=== PATIENT | male | born 1960 | race Caucasian/White ===

== ENCOUNTER 2023-11-13 18:49 | Inpatient (IN) | payer BC ==
[~2023-11-13] VITALS: Ht 175.3 cm; Wt 96.3 kg
[~2023-11-13 18:49] MED LIST: ATO40T PO; CIPR0.3S RIGHTEYE; CYCL-837 PO; DILT120C33 PO; ENAL1TAB46 PO; GABA-339 PO; NOR10T PO; OMEP20CA74 PO; RIVA20TA PO
[2023-11-14] VITALS (22 sets, daily range): BP systolic 113–173; BP diastolic 59–97; PULSE 56–117; RESP 12–22; TEMP 97.5–98.8; O2SAT 95–100
[2023-11-14] MEDS ORDERED: ATOR40TA52 PO (03:03)
[2023-11-14] MEDS ORDERED: ENAL1TAB46 PO (03:03)
[2023-11-14] MEDS ORDERED: METO-289 PO (03:03)
[2023-11-14] MEDS ORDERED: AMIO200T33 PO (03:03)
[2023-11-14] MEDS ORDERED: DULO1CAP6 PO (03:03)
[2023-11-14] MEDS ORDERED: RIVA20TA PO (03:03)
[2023-11-14] MEDS ORDERED: SODIUM CHLORIDE 0.9% 500 ML IV SCH (03:15)
[2023-11-14] MEDS ORDERED: ACETAMINOPHEN 325 MG TAB PO PRN (03:15)
[2023-11-14] MEDS ORDERED: DOCUSATE SOD 100 MG CAP PO PRN (03:15)
[2023-11-14] MEDS ORDERED: MORPHINE SULFATE INJ 2 MG/ml SYRG IV PRN ×2 (03:15)
[2023-11-14] MEDS ORDERED: NITROGLYCERIN 0.4 MG SL TAB SL PRN (03:15)
[2023-11-14] MEDS ORDERED: HYDROcodone-ACET 5/325MG TAB PO PRN (03:15)
[2023-11-14] MEDS ORDERED: ONDANSETRON HCL 4 MG/2 ML VIAL IV PRN (03:15)
[2023-11-14] MEDS ORDERED: hydrALAZINE HCL 20 MG/ML VL IV PRN (04:45)
[2023-11-14] MEDS: ALBUTEROL SULF 2.5 MG/0.5ML(0.5%) NEB SOLN NEB SCH ×5 (06:36→22:47)
[2023-11-14] MEDS: IPRATROPIUM BROM 0.5 MG/2.5ML INH SOL NEB SCH ×5 (06:36→22:47)
[2023-11-14 06:40] LABS: Lactic Acid w/Reflex 2.8 mmol/L (0.4-2.0)
[2023-11-14 07:11] LABS: Basophils # (auto) 0 10 ^3/uL (0-0.2); Basophils % (auto) 0.1 % (0.0-2.0); Eosinophils # (auto) 0 10 ^3/uL (0-0.8); Hematocrit 41.4 % (41.0-53.0); Hemoglobin 13.7 g/dL (13.5-17.5); Lymphocytes # (auto) 0.6 10 ^3/uL (0.4-5.4); Lymphocytes % (auto) 8.5 % (10.0-50.0); Mean Corpuscular Hemoglobin 33.5 pg (28.0-32.0); Mean Corpuscular Volume 101.4 fL (80.0-100.0); Monocytes # (auto) 0.2 10 ^3/uL (0-1.3); Monocytes % (auto) 2.3 % (0.0-12.0); Neutrophils % (auto) 89.1 % (37.0-80.0); Nucleated Red Blood Cells % 0.1 %; Red Blood Cells 4.08 10^6/uL (4.5-5.90); Red Cell Distribution Width 16.4 % (11.8-14.3); White Blood Cell 6.8 10^3/uL (4.4-10.8)
[2023-11-14 07:22] LABS: Alanine Aminotransferase 16 U/L (7-40); Albumin 4.1 g/dL (3.2-4.8); Alkaline Phosphatase 77 U/L (46-116); Anion Gap 11 (5-15); Aspartate Aminotransferase 24 U/L (13-40); BUN/Creatinine Ratio 15.4 (10.0-20.0); Bilirubin, Total 0.9 mg/dL (0.2-1.0); Blood Urea Nitrogen 21 mg/dL (9-23); Calcium 8.2 mg/dL (8.7-10.4); Carbon Dioxide 21 mmol/L (20-30); Chloride 108 mmol/L (98-107); Glucose 138 mg/dL (74-106); Sodium 140 mmol/L (136-145); Total Protein 6.7 g/dL (5.7-8.2)
[2023-11-14] MEDS: cefTRIAXone 1GM/50ML D5W 50 ML IV SCH (08:46)
[2023-11-14] MEDS: METOPROLOL SUCCINATE XL 50 MG TAB PO SCH (09:49)
[2023-11-14] MEDS: ASPirin 81 mg TAB PO SCH (09:50)
[2023-11-14] MEDS: AZITHROMYCIN 500MG/ 250ML 250 ML IV SCH (09:50)
[2023-11-14] MEDS: AMIODARONE HCL 200 MG TAB PO SCH (09:50)
[2023-11-14] MEDS ORDERED: ENOXAPARIN SOD 40 MG/0.4 ML SYRINGE SC SCH (10:00)
[2023-11-14] MEDS: methylPREDNISolone SOD SUCC 40 MG/ML VL IV SCH ×2 (14:45→21:30)
[2023-11-14] MEDS: RIVAROXABAN 20 MG TAB PO SCH (16:42)
[2023-11-14] MEDS ORDERED: ATORVASTATIN 20 MG TAB PO SCH (22:00)
[2023-11-15] VITALS (10 sets, daily range): BP systolic 132–151; BP diastolic 77–116; PULSE 61–122; RESP 18–19; TEMP 97.4–98.3; O2SAT 95–100
[2023-11-15 04:58] LABS: Anion Gap 9 (5-15); Carbon Dioxide 21 mmol/L (20-30); Chloride 107 mmol/L (98-107); Potassium 3.9 mmol/L (3.5-5.1); Sodium 137 mmol/L (136-145)
[2023-11-15 04:59] LABS: Calcium 8.6 mg/dL (8.7-10.4)
[2023-11-15 05:04] LABS: BUN/Creatinine Ratio 14.4 (10.0-20.0); Blood Urea Nitrogen 22 mg/dL (9-23); Glucose 152 mg/dL (74-106)
[2023-11-15] MEDS: methylPREDNISolone SOD SUCC 40 MG/ML VL IV SCH ×2 (05:18→13:10)
[2023-11-15 05:21] LABS: Basophils # (auto) 0 10 ^3/uL (0-0.2); Eosinophils # (auto) 0 10 ^3/uL (0-0.8); Lymphocytes # (auto) 0.6 10 ^3/uL (0.4-5.4); Mean Corpuscular Volume 101.8 fL (80.0-100.0); Monocytes # (auto) 0.2 10 ^3/uL (0-1.3); White Blood Cell 9.8 10^3/uL (4.4-10.8)
[2023-11-15 05:23] LABS: Basophils % (auto) 0.2 % (0.0-2.0); Eosinophils % (auto) 0.1 % (0.0-7.0); Hematocrit 40.9 % (41.0-53.0); Hemoglobin 13.4 g/dL (13.5-17.5); Lymphocytes % (auto) 6.4 % (10.0-50.0); Mean Corpuscular Hemoglobin 33.3 pg (28.0-32.0); Mean Corpuscular Hgb Conc. 32.7 g/dL (32.0-36.0); Monocytes % (auto) 2.1 % (0.0-12.0); Neutrophils # (auto) 8.9 10 ^3/uL (1.6-8.6); Neutrophils % (auto) 91.2 % (37.0-80.0); Nucleated Red Blood Cells % 0.1 %; Red Blood Cells 4.02 10^6/uL (4.5-5.90); Red Cell Distribution Width 16.3 % (11.8-14.3)
[2023-11-15] MEDS: IPRATROPIUM BROM 0.5 MG/2.5ML INH SOL NEB SCH ×3 (06:31→14:48)
[2023-11-15] MEDS: ALBUTEROL SULF 2.5 MG/0.5ML(0.5%) NEB SOLN NEB SCH ×3 (06:31→14:47)
[2023-11-15] MEDS: cefTRIAXone 1GM/50ML D5W 50 ML IV SCH (08:14)
[2023-11-15] MEDS: METOPROLOL SUCCINATE XL 50 MG TAB PO SCH (09:30)
[2023-11-15] MEDS: ASPirin 81 mg TAB PO SCH (09:30)
[2023-11-15] MEDS: AZITHROMYCIN 500MG/ 250ML 250 ML IV SCH (09:31)
[2023-11-15] MEDS: AMIODARONE HCL 200 MG TAB PO SCH (09:31)
[2023-11-15] MEDS ORDERED: REGADENOSON 0.4 MG/5 ML SYRG IV ONE ×2 (10:09→10:15)
[2023-11-15] MEDS: RIVAROXABAN 20 MG TAB PO SCH (17:30)
[2023-11-15] MEDS ORDERED: AUG875T PO (17:59)
[2023-11-15] MEDS ORDERED: METH4PAK PO (17:59)
[2023-11-16] MEDS ORDERED: amLODIPine BESYLATE 5 MG TAB PO SCH (10:00)
[2023-11-22] MEDS ORDERED: METH4PAK PO (12:25)
[2023-11-22] MEDS ORDERED: DOXY-448 PO (12:25)
[2023-11-24] MEDS ORDERED: FURO1TAB31 PO (13:22)
== END 2023-11-15 21:17 | disposition home or self-care (01) | DRG 177 ==
LOC: TELE-WESTW 11-14 01:44
PROVIDERS: ADMIT Hospitalist; ATTEND Hospitalist
DX: J15.69 Pneumonia due to other Gram-negative bacteria (principal); J96.21 Acute and chronic respiratory failure with hypoxia; J44.0 Chronic obstructive pulmonary disease with (acute) lower respiratory infection; E87.20 Acidosis, unspecified; J98.11 Atelectasis; J44.1 Chronic obstructive pulmonary disease with (acute) exacerbation; J90 Pleural effusion, not elsewhere classified; I13.0 Hypertensive heart and chronic kidney disease with heart failure and stage 1 through stage 4 chronic kidney disease, or unspecified chronic kidney disease; I48.21 Permanent atrial fibrillation; E66.9 Obesity, unspecified; E87.6 Hypokalemia; F17.210 Nicotine dependence, cigarettes, uncomplicated; I73.9 Peripheral vascular disease, unspecified; N18.9 Chronic kidney disease, unspecified; I50.9 Heart failure, unspecified; Z68.30 Body mass index [BMI] 30.0-30.9, adult; Z86.73 Personal history of transient ischemic attack (TIA), and cerebral infarction without residual deficits; I25.2 Old myocardial infarction; Z83.3 Family history of diabetes mellitus; J15.9 Unspecified bacterial pneumonia
CPT/HCPCS: 36415; 78452; 80048; 80053; 83605; 84484; 85025; 87040; 93017; 93306; 93925; 94640; 97163; G0378

== ENCOUNTER 2024-03-22 09:23 | Inpatient (IN) | payer BC ==
[2024-03-22] VITALS (7 sets, daily range): BP systolic 109; BP diastolic 55; PULSE 97–109; RESP 15–28; TEMP 98.5; O2SAT 94–100
[~2024-03-22] VITALS: Ht 175.3 cm; Wt 97.0 kg
[~2024-03-22 09:23] MED LIST changes: +AMIO200T33 PO; -ATO40T PO; +ATOR40TA52 PO; -CIPR0.3S RIGHTEYE; +DOXY-448 PO; +DULO1CAP6 PO; -ENAL1TAB46 PO; +FURO1TAB31 PO; +METH4PAK PO; +METO-289 PO
[2024-03-22] MEDS: ALBUTEROL SULF 2.5 MG/0.5ML(0.5%) NEB SOLN NEB ONE ×2 (09:30→09:38)
[2024-03-22] MEDS: MAGNESIUM SULFATE 1GM/100ML 100 ML IV ONE (09:30)
[2024-03-22] MEDS: ALBUTEROL SULF 2.5 MG/0.5ML(0.5%) NEB SOLN ONE (09:37)
[2024-03-22] MEDS: cefTRIAXone 1GM/50ML D5W 50 ML IV ONE (09:47)
[2024-03-22] MEDS: FUROSEMIDE 20 MG/2 ML VIAL IV ONE (09:47)
[2024-03-22] MEDS: methylPREDNISolone SOD SUCC 125 MG/2 ML VL IV ONE (09:47)
[2024-03-22 09:50] LABS: Basophils # (auto) 0 10 ^3/uL (0-0.2); Basophils % (auto) 0.5 % (0.0-2.0); Eosinophils # (auto) 0 10 ^3/uL (0-0.8); Eosinophils % (auto) 0.4 % (0.0-7.0); Hematocrit 41.7 % (41.0-53.0); Hemoglobin 13.4 g/dL (13.5-17.5); Lymphocytes # (auto) 1.4 10 ^3/uL (0.4-5.4); Lymphocytes % (auto) 14.8 % (10.0-50.0); Mean Corpuscular Hemoglobin 33.1 pg (28.0-32.0); Mean Corpuscular Hgb Conc. 32.2 g/dL (32.0-36.0); Mean Corpuscular Volume 102.8 fL (80.0-100.0); Monocytes # (auto) 0.6 10 ^3/uL (0-1.3); Monocytes % (auto) 5.8 % (0.0-12.0); Neutrophils # (auto) 7.5 10 ^3/uL (1.6-8.6); Neutrophils % (auto) 78.5 % (37.0-80.0); Red Blood Cells 4.05 10^6/uL (4.5-5.90); Red Cell Distribution Width 15.4 % (11.8-14.3); White Blood Cell 9.5 10^3/uL (4.4-10.8)
[2024-03-22 09:56] LABS: Chloride 107 mmol/L (98-107); Potassium 2.8 mmol/L (3.5-5.1); Sodium 140 mmol/L (136-145)
[2024-03-22 09:57] LABS: Anion Gap 8 (5-15); Carbon Dioxide 25 mmol/L (20-30)
[2024-03-22 09:58] LABS: Calcium 9.4 mg/dL (8.5-10.1)
[2024-03-22 10:02] LABS: Glucose 126 mg/dL (74-106)
[2024-03-22 10:03] LABS: BUN/Creatinine Ratio 10.2 (10.0-20.0); Blood Urea Nitrogen 11 mg/dL (9-23)
[2024-03-22] MEDS: AZITHROMYCIN 500MG/ 250ML 250 ML IV ONE (11:17)
[2024-03-22] MEDS ORDERED: NITROGLYCERIN 0.4 MG SL TAB SL PRN (13:15)
[2024-03-22] MEDS ORDERED: MORPHINE SULFATE INJ 2 MG/ml SYRG IV PRN (13:15)
[2024-03-22] MEDS ORDERED: CYCLOBENZAPRINE HCL 10 MG TAB PO PRN (13:30)
[2024-03-22] MEDS: ALBUTEROL SULF 2.5 MG/0.5ML(0.5%) NEB SOLN NEB SCH (14:15)
[2024-03-22] MEDS: IPRATROPIUM BROM 0.5 MG/2.5ML INH SOL NEB SCH (14:16)
[2024-03-22] MEDS: methylPREDNISolone SOD SUCC 125 MG/2 ML VL IV SCH (14:38)
[2024-03-22] MEDS: GABAPENTIN 300 MG CAP PO SCH (14:38)
[2024-03-22] MEDS: FUROSEMIDE 40 MG/4 ML VIAL IV SCH (18:00)
[2024-03-22] MEDS: HYDROcodone-ACET 5/325MG TAB PO PRN (19:59)
[2024-03-22] MEDS: ATORVASTATIN 20 MG TAB PO SCH (22:47)
[2024-03-22] MEDS: POTASSIUM CHL 20 Meq TABLET PO ONE (23:49)
[2024-03-23] VITALS (18 sets, daily range): BP systolic 94–121; BP diastolic 64–82; PULSE 70–120; RESP 14–30; TEMP 98–98.3; O2SAT 95–99
[2024-03-23 05:44] LABS: Basophils # (auto) 0.2 10 ^3/uL (0-0.2); Eosinophils # (auto) 0 10 ^3/uL (0-0.8); Hematocrit 39.4 % (41.0-53.0); Hemoglobin 12.9 g/dL (13.5-17.5); Lymphocytes # (auto) 0.7 10 ^3/uL (0.4-5.4); Lymphocytes % (auto) 3.6 % (10.0-50.0); Mean Corpuscular Hemoglobin 33.1 pg (28.0-32.0); Mean Corpuscular Hgb Conc. 32.7 g/dL (32.0-36.0); Mean Corpuscular Volume 101.1 fL (80.0-100.0); Monocytes # (auto) 0.5 10 ^3/uL (0-1.3); Monocytes % (auto) 2.3 % (0.0-12.0); Neutrophils # (auto) 18.6 10 ^3/uL (1.6-8.6); Neutrophils % (auto) 93.1 % (37.0-80.0); Red Cell Distribution Width 15.4 % (11.8-14.3)
[2024-03-23 06:31] LABS: Albumin 3.9 g/dL (3.2-4.8); Alkaline Phosphatase 69 U/L (46-116); Anion Gap 11 (5-15); Aspartate Aminotransferase 13 U/L (13-40); BUN/Creatinine Ratio 16.7 (10.0-20.0); Blood Urea Nitrogen 23 mg/dL (9-23); Calcium 9.2 mg/dL (8.7-10.4); Carbon Dioxide 23 mmol/L (20-30); Chloride 104 mmol/L (98-107); Glucose 156 mg/dL (74-106); Sodium 138 mmol/L (136-145)
[2024-03-23 06:32] LABS: Alanine Aminotransferase < 9 U/L (7-40); Bilirubin, Total 0.9 mg/dL (0.2-1.0); Total Protein 6.9 g/dL (5.7-8.2)
[2024-03-23] MEDS: MORPHINE SULFATE INJ 2 MG/ml SYRG IV PRN (07:28)
[2024-03-23] MEDS: ONDANSETRON HCL 4 MG/2 ML VIAL IV PRN (07:30)
[2024-03-23] MEDS: cefTRIAXone 1GM/50ML D5W 50 ML IV SCH (09:08)
[2024-03-23] MEDS ORDERED: RIVAROXABAN 20 MG TAB PO SCH (10:00)
[2024-03-23] MEDS: DULoxetine HCL 30 MG CAP PO SCH (10:34)
[2024-03-23] MEDS: PANTOPRAZOLE 40 MG TAB PO SCH (10:35)
[2024-03-23] MEDS: AZITHROMYCIN 500MG/ 250ML 250 ML IV SCH (10:35)
[2024-03-23] MEDS: AMIODARONE HCL 200 MG TAB PO SCH (10:35)
[2024-03-23] MEDS: dilTIAZem 120MG ER CAP PO SCH (10:35)
[2024-03-23] MEDS: ENOXAPARIN SOD 40 MG/0.4 ML SYRINGE SC SCH (10:36)
[2024-03-23] MEDS: METOPROLOL SUCCINATE XL 50 MG TAB PO SCH (10:37)
[2024-03-23] MEDS ORDERED: AMLO1TAB22 PO (14:51)
[2024-03-23] MEDS ORDERED: IBUP-1454 PO (14:51)
[2024-03-23] MEDS ORDERED: ASPI81TA28 PO (14:51)
[2024-03-23] MEDS ORDERED: ALBU2TAB11 PO (14:51)
[2024-03-23] MEDS ORDERED: FLUT0.05 NAS (14:51)
[2024-03-23] MEDS: ACETAMINOPHEN 325 MG TAB PO PRN (22:01)
[2024-03-24] VITALS (29 sets, daily range): BP systolic 104–129; BP diastolic 52–98; PULSE 53–123; RESP 12–22; TEMP 79.9–98.1; O2SAT 90–98
[2024-03-24] MEDS: LIDOCAINE 2%HCL (LOCAL ANESTH.) INJ 20ML MDV ONE (12:11)
[2024-03-24] MEDS: IODIXANOL 320MG/ML 100ML BTL IV ONE (12:11)
[2024-03-24] MEDS: VERAPAMIL 2.5MG/ML INJ 2ML VIAL IV ONE (12:29)
[2024-03-24] MEDS: fentaNYL CITRATE 100 MCG/2 ML VL ONE (12:29)
[2024-03-24] MEDS: MIDAZOLAM HCL 2MG/2ML 2ml VIAL (1mg/ml) ONE (12:29)
[2024-03-24] MEDS: ANGIOMAX 250 MG VIAL IV ONE (12:29)
[2024-03-24] MEDS: SODIUM CHL 0.9% 0 ML ONE (12:30)
[2024-03-24] MEDS: HEPARIN SODIUM (PORCINE) 5000 UNITS/ML 1ML VIAL ONE (13:14)
[2024-03-24] MEDS ORDERED: ALBU108A5 INH (14:29)
[2024-03-24] MEDS ORDERED: FLUT1AER7 INH (14:31)
[2024-03-24] MEDS: metOLazone 5 MG TAB PO ONE (15:13)
[2024-03-24] MEDS: CLOPIDOGREL BISULFATE 75 MG TAB PO ONE (15:14)
[2024-03-24] MEDS: POTASSIUM CHL 20 Meq TABLET PO ONE (21:48)
[2024-03-24] MEDS: POTASSIUM CHL 20MEQ/100ML 100 ML IV ONE (21:50)
[2024-03-24] MEDS ORDERED: FUROSEMIDE 40 MG/4 ML VIAL IV ONE (23:00)
[2024-03-24] MEDS ORDERED: SODIUM BICARB 8.4% 50Meq/50ml SYR Vial IV ONE (23:44)
[2024-03-25] MEDS ORDERED: CLOPIDOGREL BISULFATE 75 MG TAB PO SCH (10:00)
== END 2024-03-25 07:07 | DRG 291 ==
LOC: ER 09:23 → EDBD 09:23 → TELE 13:19 → TELE-CENTR 03-23 14:27
PROVIDERS: ADMIT Internal Medicine; ATTEND Internal Medicine
PROC: 0BH17EZ Insertion of Endotracheal Airway into Trachea, Via Natural or Artificial Opening (ICD-10-PCS; 2024-03-22)
PROC: 5A12012 Performance of Cardiac Output, Single, Manual (ICD-10-PCS; principal; 2024-03-24)
DX: I11.0 Hypertensive heart disease with heart failure (principal); I50.23 Acute on chronic systolic (congestive) heart failure; J96.21 Acute and chronic respiratory failure with hypoxia; J44.1 Chronic obstructive pulmonary disease with (acute) exacerbation; I48.19 Other persistent atrial fibrillation; I25.10 Atherosclerotic heart disease of native coronary artery without angina pectoris; E87.6 Hypokalemia; E11.9 Type 2 diabetes mellitus without complications; F17.210 Nicotine dependence, cigarettes, uncomplicated; I42.9 Cardiomyopathy, unspecified; G30.9 Alzheimer's disease, unspecified; Z86.73 Personal history of transient ischemic attack (TIA), and cerebral infarction without residual deficits; Z90.49 Acquired absence of other specified parts of digestive tract; Z83.3 Family history of diabetes mellitus; Z82.49 Family history of ischemic heart disease and other diseases of the circulatory system; Z79.4 Long term (current) use of insulin; Z79.899 Other long term (current) drug therapy
CPT/HCPCS: 36415; 71045; 80048; 80053; 82962; 83880; 84132; 84484; 85025; 86850; 86900; 86901; 92950; 92960; 93005; 93458; 94640; 94644; 96365; 96367; 96375; 97163; 99152; 99291; G0378; J2250; J2405; J3480; Q9967